=== PATIENT | female | born 1955 | race Caucasian/White ===

== ENCOUNTER 2018-03-04 20:29 | Emergency (ER) | payer MEDICARE, MEDICAID ==
--- NOTE | 2018-03-04 21:21 | RADIOLOGY REPORT (SQ) ---
XR CHEST 1 VIEW HISTORY: SOB. COMPARISON: 01/12/2015 FINDINGS: The cardiomediastinal silhouette is unremarkable. The lungs are clear. No pleural effusion or pneumothorax is identified. IMPRESSION: No acute cardiopulmonary abnormality.
[2018-03-04 21:43] LABS: ABSOLUTE EOSINOPHILS # (AUTO) 0.1 10^3/uL (0.0-0.6); ABSOLUTE LYMPHOCYTES (AUTO) 1.3 10^3/uL (0.5-4.7); ABSOLUTE MONOCYTES (AUTO) 0.4 10^3/uL (0.1-1.4); ABSOLUTE NEUT (AUTO) 4.5 10^3/uL (1.7-8.2); BASOPHILS % (AUTO) 0.8 % (0-2); HEMATOCRIT 42.5 % (36.0-47.0); HEMOGLOBIN 14.8 g/dL (12.0-15.5); LYMPHOCYTES % (AUTO) 19.9 % (13-45); MEAN CORPUSCULAR HEMOGLOBIN 31.5 pg (27.0-33.4); MEAN CORPUSCULAR HGB CONC 34.8 g/dL (32.0-36.0); MEAN CORPUSCULAR VOLUME 90 fl (80-97); PLATELET COUNT 342 10^3/uL (150-450); RED CELL DISTRIBUTION WIDTH 13.5 % (11.5-14.0); SEGMENTED NEUTROPHILS % (AUTO) 71.3 % (42-78); TOTAL CELLS COUNTED % (AUTO) 100 %; WHITE BLOOD COUNT 6.4 10^3/uL (4.0-10.5)
[2018-03-04] MEDS ORDERED: ONDANSETRON 4 MG TAB.RAPDIS PO ONE ×2 (21:54→23:39)
[2018-03-04 21:55] LABS: ALANINE AMINOTRANSFERASE 18 U/L (9-52); ALBUMIN 4.8 g/dL (3.5-5.0); ALKALINE PHOSPHATASE 88 U/L (38-126); ANION GAP 14 (5-19); ASPARTATE AMINO TRANSFERASE 33 U/L (14-36); BILIRUBIN,DIRECT 0.3 mg/dL (0.0-0.4); BILIRUBIN,TOTAL 0.4 mg/dL (0.2-1.3); BLOOD UREA NITROGEN 10 mg/dL (7-20); CALCIUM 9.6 mg/dL (8.4-10.2); CARBON DIOXIDE 27 mmol/L (22-30); CHLORIDE 95 mmol/L (98-107); GLUCOSE 106 mg/dL (75-110); LIPASE 43.2 U/L (23-300); POTASSIUM 3.2 mmol/L (3.6-5.0); SODIUM 135.9 mmol/L (137-145)
[2018-03-04] MEDS ORDERED: CLINDAMYCIN HCL 150 MG CAPSULE PO ONE (23:08)
--- NOTE | 2018-03-04 23:10 | ER Document Report ---
ED General - General Chief Complaint: Nausea Stated Complaint: TROUBLE BREATHING Time Seen by Provider: 03/04/18 20:50 Notes: Patient is a 62-year-old female with a past medical history of anxiety, depression, lupus, presents complaining of multiple concerns. It is actually somewhat difficult to ascertain exactly what brings the patient to the emergency department tonight. Her complaints include a metallic taste in her mouth, nausea, lack of appetite, vomiting, dental pain, gum swelling, intermittent chest discomfort, epigastric abdominal discomfort, fatigue, bilateral ear pain, and intermittent headache. States the symptoms have been going on for at least 1 week although probably more than that. She states that nothing seems to i mprove or worsen her symptoms. The patient continuously states "I do not know I just do not feel good". She has not seen her primary physician regarding today's concerns stating "my Medicaid got messed up and I got frustrated trying to fix it so I have not seen them". She denies fever. Uncertain of whether or not she has had similar symptoms in the past. TRAVEL OUTSIDE OF THE [place] IN LAST 30 DAYS: No - Related Data Allergies/Adverse Reactions: amitriptyline [Amitriptyline] Adverse Reaction (Mild, Verified 06/22/11 07:54) feels uneasy almost overdosed duloxetine HCl [From Cymbalta] Adverse Reaction (Mild, Verified 06/22/11 07:54) makes crazy mirtazapine [From Remeron] Adverse Reaction (Mild, Verified 06/22/11 07:54) makes crazy Past Medical History - General Information source: Patient, Relative - Social History Smoking Status: Current Every Day Smoker Frequency of alcohol use: None Drug Abuse: None Lives with: Family Family History: Reviewed & Not Pertinent Patient has suicidal ideation: No Patient has homicidal ideation: No - Past Medical History Cardiac Medical History: Denies: Hx Coronary Artery Disease, Hx Heart Attack, Hx Hypertension Pulmonary Medical History: Reports: Hx Asthma - SOB at times usues inhaler occasionally Denies: Hx Bronchitis, Hx COPD, Hx Pneumonia - hx of plerusey Neurological Medical History: Denies: Hx Cerebrovascular Accident, Hx Seizures Renal/ Medical History: Denies: Hx Peritoneal Dialysis Musculoskeletal Medical History: Reports Hx Arthritis - no cartialge in knees Past Surgical History: Reports: Hx Hysterectomy. Denies: Hx Pacemaker - Immunizations Hx Diphtheria, Pertussis, Tetanus Vaccination: Yes Hx Pneumococcal Vaccination: 03/05/10 Review of Systems - Review of Systems Notes: Constitutional: Negative for fever. HENT: Positive for sore throat, dental pain Eyes: Negative for visual changes. Cardiovascular: Positive for intermittent chest discomfort Respiratory: Negative for shortness of breath. Gastrointestinal: Positive for nausea and vomiting Genitourinary: Negative for dysuria. Musculoskeletal: Negative for back pain. Skin: Negative for rash. Neurological: Positive for intermittent headache 10 point ROS negative except as marked above and in HPI. Physical Exam - Vital signs Vitals: Temp Pulse Resp BP Pulse Ox 98.3 F 111 H 20 153/94 H 97 03/04/18 20:38 03/04/18 20:38 03/04/18 20:38 03/04/18 20:38 03/04/18 20:38 Interpretation: Hypertensive, Tachycardic - Resolved at the time of my assessment Notes: PHYSICAL EXAMINATION: GENERAL: Well-appearing, well-nourished and in no acute distress. HEAD: Atraumatic, normocephalic. EYES: Pupils equal round and reactive to light, extraocular movements intact, sclera anicteric, conjunctiva are normal. ENT: nares patent, oropharynx clear without exudates. Poor dentition throughout, diffuse hypertrophy and inflammation of the gingiva NECK: Normal range of motion, supple without lymphadenopathy LUNGS: Breath sounds clear to auscultation bilaterally and equal. No wheezes rales or rhonchi. HEART: Regular rate and rhythm without murmurs ABDOMEN: Soft, nontender, normoactive bowel sounds. No guarding, no rebound. No masses appreciated. EXTREMITIES: Normal range of motion, no pitting or edema. No cyanosis. NEUROLOGICAL: No focal neurological deficits. Moves all extremities spontaneous ly and on command. PSYCH: Normal mood, normal affect. SKIN: Warm, Dry, normal turgor, no rashes or lesions noted. Course - Re-evaluation Re-evalutation: 03/04/18 23:09 Patient presents with multiple vague complaints that did not appear to be concerning for any acute life-threatening pathology. Vitals are within normal limits at time of assessment although initially there was tachycardia present. Physical examination is unremarkable with the exception of poor dentition and apparent gingivitis. Patient has tolerated oral intake without difficulty. Patient was not noted to be in distress at any point during their ER visit. At this time, based on the reassuring evaluation, I do not suspect an acute CT, pulmonary embolus, aortic dissection, acute intra-abdominal pathology, stroke, or sepsis. The patient has been started on clindamycin for a multitude of dental infections and gingivitis as well as peroxide washes. Patient also requesting something for her gastritis as well as nausea and vomiting and this has been p rovided. I have emphasized the patient that given that her symptoms have been ongoing for weeks she will require close outpatient follow-up, possible GI referral. Will discharge with return precautions and follow-up recommendations. Verbal discharge instructions given a the bedside and opportunity for questions given. Medication warnings reviewed. Patient is in agreement with this plan and has verbalized understanding of return precautions and the need for primary care follow-up in the next 24-72 hours. - Vital Signs Vital signs: Temp Pulse Resp BP Pulse Ox 98.3 F 98 19 141/76 H 96 03/04/18 20:38 03/04/18 23:57 03/04/18 23:57 03/04/18 23:57 03/04/18 23:57 - Laboratory Result Diagrams: 03/04/18 21:25 03/04/18 21:25 Laboratory results interpreted by me: 03/04/18 21:25 Sodium 135.9 L Potassium 3.2 L Chloride 95 L - Diagnostic Test Radiology reviewed: Image reviewed, Reports reviewed Radiology results interpreted by me: 03/04/18 23:10 Chest x-ray: No acute infiltrate or pneumothorax - EKG Interpretation by Me Additional EKG results interpreted by me: 03/04/18 23:10 Sinus tachycardia, rate 101. No ST elevations or depressions. QTC is 452. Discharge - Discharge Clinical Impression: Dental infection, Gingivitis, Acute pain of both ears Nausea and vomiting Qualifiers: Vomiting type: unspecified Vomiting Intractability: non-intractable Qualified Code(s): R11.2 - Nausea with vomiting, unspecified Insomnia Qualifiers: Insomnia type: unspecified Qualified Code(s): G47.00 - Insomnia, unspecified Condition: Good Disposition: HOME, SELF-CARE Additional Instructions: For the next 1 week begin taking antibiotics that have been prescribed to treat your dental infection and gingivitis. Please also swish with a 50-50 mixture of water and hydrogen peroxide twice daily for the next 1 week. You may take the Reglan that has been prescribed as needed for nausea and vomiting. Please begin taking famotidine 40 mg in the morning and 40 mg at night. Take Carafate prior to meals. Please return to emergency department immediately if you have worsening of your pain, shortness of breath, vomiting, become unable to exert yourself due to pain or difficulty breathing, you pass out, or have any pain that radiates into your arms, jaw, or back. Please also return if you have any additional symptoms that are concerning to you. You will likely need an endoscopy and will need to speak with your primary care doctor about a GI referral. As we have discussed, the most important thing is lifestyle changes. You need to avoid smoking, sodas, tea, coffee, alcohol, spicy foods, and acidic foods such as citrus fruits, tomato based products, berries, and most fruit juices. Prescriptions: Clindamycin HCl 300 mg PO TID #21 capsule Famotidine 40 mg PO BID #60 tablet Metoclopramide HCl [Reglan 10 mg Tablet] 1 - 2 tab PO ASDIR PRN #25 tablet PRN Reason: Sucralfate [Carafate 1 gm Tablet] 1 gm PO ACHS #120 tablet Referrals: KIM BLANCHARD, [facility] [Primary Care Provider] - Follow up as needed
--- NOTE | 2018-03-04 23:39 | EKG REPORT ---
SEVERITY:- ABNORMAL ECG - SINUS TACHYCARDIA LEFT VENTRICULAR HYPERTROPHY INFERIOR INFARCT, AGE INDETERMINATE : Confirmed by: Crystal Lainez MD 04-Mar-2018 23:39:00
[2018-03-04 23:58] VITALS: BP 141/76
== END 2018-03-04 23:57 | disposition home or self-care (01) ==
LOC: ER 20:29
DX: K05.10 Chronic gingivitis, plaque induced (principal); K04.7 Periapical abscess without sinus; K29.70 Gastritis, unspecified, without bleeding; R11.2 Nausea with vomiting, unspecified; H92.03 Otalgia, bilateral; G47.00 Insomnia, unspecified; R63.0 Anorexia; R09.89 Other specified symptoms and signs involving the circulatory and respiratory systems; R51 Headache; R53.83 Other fatigue; F17.200 Nicotine dependence, unspecified, uncomplicated; J45.909 Unspecified asthma, uncomplicated; J02.9 Acute pharyngitis, unspecified; R00.0 Tachycardia, unspecified
CPT/HCPCS: 93005; 99284; 36415; 83690; 85025; 80053; 84484; 71045; 93010; A9270 ×2; S0119